=== PATIENT | female | born 1955 ===

== ENCOUNTER 2017-01-20 16:40 | Inpatient (IN) | payer BC ==
--- NOTE | 2017-01-20 17:06 | ED PDOC ---
HPI: Abdomen Time Seen by Provider: 01/20/17 16:50 Chief Complaint (Nursing): Abdominal Pain Chief Complaint (Provider): Diarrhea, vomiting, fever History Per: Patient History/Exam Limitations: no limitations Onset/Duration Of Symptoms: Days (5) Outside of [place] travel?: No Current Symptoms Are (Timing): Still Present Additional Complaint(s): The patient is a 61yo female, past medical history of hypertension, presents to eD for evaluation of non-bloody diarrhea, present for the past 5 days with associated nausea and non-bloody vomiting. Patient also reports a fever with Tmax of 100; she denies any associated abdominal pain or -symptoms. Patient denies any pervious abdominal surgeries. She offers no additional medical complaints. PCP: Dr. Bernardo Past Medical History Reviewed: Historical Data, Nursing Documentation, Vital Signs Vital Signs: Last Vital Signs Temp 97.4 F L 01/21/17 00:00 Pulse 76 01/21/17 00:00 Resp 20 01/21/17 00:00 BP 115/71 01/21/17 00:00 Pulse Ox 100 01/21/17 06:32 - Medical History PMH: HTN - Surgical History Surgical History: No Surg Hx - Family History Family History: States: No Known Family Hx - Social History Current smoker - smoking cessation education provided: No Alcohol: None Drugs: Denies - Home Medications Home Medications: Ambulatory Orders Medication Instructions Recorded Calcium No.1/D3/B6/FA/B12/Aloe 7,000 units PO QWK 01/20/17 [Vitamin D3-Aloe 1,000 Unit Tab] Lisinopril/Hydrochlorothiazide 20 - 25 mg PO DAILY 01/20/17 [Lisinopril-Hctz 20-25 mg Tab] [id number] Ethyl Esters 1 GM 01/20/17 [Lovaza] - Allergies Allergies/Adverse Reactions: Allergies Allergy/AdvReac Type Severity Reaction Status Date / Time No Known Allergies Allergy Verified 01/20/17 16:44 Review of Systems ROS Statement: Except As Marked, All Systems Reviewed And Found Negative Constitutional: Positive for: Fever (tmax 100) Gastrointestinal: Positive for: Nausea, Vomiting, Diarrhea. Negative for: Abdominal Pain Physical Exam - Reviewed Nursing Documentation Reviewed: Yes Vital Signs Reviewed: Yes - Physical Exam Appears: Positive for: Well, Non-toxic, No Acute Distress Head Exam: Positive for: ATRAUMATIC, NORMAL INSPECTION, NORMOCEPHALIC Skin: Positive for: Normal Color, Warm, DRY Eye Exam: Positive for: Normal appearance Neck: Positive for: Normal, Supple Cardiovascular/Chest: Positive for: Regular Rate, Rhythm Respiratory: Positive for: Normal Breath Sounds. Negative for: Respiratory Distress Gastrointestinal/Abdominal: Positive for: Normal Exam, Soft. Negative for: Tenderness, Mass, Guarding, Rebound Extremity: Positive for: Normal ROM. Negative for: Deformity, Swelling Neurologic/Psych: Positive for: Alert, Oriented. Negative for: Motor/Sensory Deficits - Laboratory Results Result Diagrams: 01/21/17 06:55 01/21/17 06:55 - ECG O2 Sat by Pulse Oximetry: 100 (RA) Pulse Ox Interpretation: Normal Medical Decision Making Medical Decision Making: Time: 1654 Impression: Fever, gastroenteritis Plan: --- CT AP w/ IV Contrast -- VBG -- EKG -- CMP -- Lipase -- CBC -- PTT -- PT -- Tylenol 3 650 mg PO -- IV NS 1L/Hr -- Zofran 4mg IV -- Blood cultrue -- Urine Culture -- Urinalysis -- Reassess Time: 1815 K-Dur 20 meq PO ordered Time: 1830 Repeat potassium level at 2.7 K-Dur 20meq PO ordered Time: 1900 Patient to be signed out to Dr. Cerrato pending CT AP results and disposition. Scribe Attestation: Documented by Kandace Tracy acting as a scribe for Tawana Trejo MD. Provider Attestation: All medical record entries made by the Scribe were at my direction and personally dictated by me. I have reviewed the chart and agree that the record accurately reflects my personal performance of the history, physical exam, medical decision making, and the department course for this patient. I have also personally directed, reviewed, and agree with the discharge instructions and disposition. Disposition - Clinical Impression Clinical Impression: Ureteral calculus, Pyelonephritis - Patient ED Disposition Is Patient to be Admitted: Transfer of Care - Disposition Disposition: Transfer of Care Disposition Time: 19:00 Condition: STABLE Patient Signed Over To: London Cerrato Handoff Comments: Pending CT AP
[2017-01-20] MEDS ORDERED: Sodium Chloride 0.9% 1,000 ML IV STA ×2 (17:34→18:45)
[2017-01-20 17:56] LABS: VENOUS BLOOD GAS BASE EXCESS 6.6 mmol/L (0.0-2.0); VENOUS BLOOD GAS PCO2 29 mmHg (40-60); VENOUS BLOOD PH 7.59 (7.32-7.43)
[2017-01-20 17:57] LABS: BASO % 0.3 % (0.0-2.0); HEMATOCRIT 42.5 % (34.0-47.0); LYMPH # 1.2 K/uL (1.0-4.3); MEAN CELL VOLUME 88.8 fl (81.0-99.0); MEAN CORPUSCULAR HEMOGLOBIN 30.7 pg (27.0-31.0); MEAN CORPUSCULAR HGB CONC 34.6 g/dL (33.0-37.0); MEAN PLATELET VOLUME 8.9 fl (7.2-11.7); MONO # 1.6 K/uL (0.0-0.8); MONO % 8.6 % (0.0-10.0); NEUT # 16.3 K/uL (1.8-7.0); NEUT % 85.1 % (50.0-75.0); PLATELET COUNT 221 K/uL (130-400); RED CELL DISTRIBUTION WIDTH 12.4 % (11.5-14.5); WHITE BLOOD COUNT 19.1 K/uL (4.8-10.8)
[2017-01-20 18:07] LABS: ALB/GLOB RATIO 1.2 (1.0-2.1); BILIRUBIN,TOTAL 2.3 mg/dl (0.2-1.3); CALCIUM 9.5 mg/dL (8.4-10.2); TOTAL PROTEIN 8.4 G/DL (6.3-8.2)
[2017-01-20 18:14] LABS: POTASSIUM 3.5 MMOL/L (3.6-5.0)
[2017-01-20] MEDS ORDERED: Potassium Chloride 20 mEq ER Tab PO STA ×2 (18:16→18:49)
[2017-01-20] MEDS ORDERED: Potassium Chloride 20 mEq ER Tab PO ONE ×2 (18:30→18:51)
--- NOTE | 2017-01-20 19:11 | ED PDOC ---
- Laboratory Results Result Diagrams: 01/20/17 17:49 01/20/17 18:30 - ECG O2 Sat by Pulse Oximetry: 100 (RA) Pulse Ox Interpretation: Normal Medical Decision Making Medical Decision Making: Receiving sign out: Patient signed out to me by Dr. Trejo at [address] AP results. Scribe Attestation: Documented by Kandace Tracy acting as a scribe for London Cerrato MD. Provider Attestation: All medical record entries made by the Scribe were at my direction and personally dictated by me. I have reviewed the chart and agree that the record accurately reflects my personal performance of the history, physical exam, medical decision making, and the department course for this patient. I have also personally directed, reviewed, and agree with the discharge instructions and disposition. Disposition Discussed With : Tressa Liu Counseled Patient/Family Regarding: Studies Performed, Diagnosis - Clinical Impression Clinical Impression: Ureteral calculus, Pyelonephritis - POA Present On Arrival: None - Disposition Disposition: Admitted as In-Patient Disposition Time: 21:00 Condition: FAIR Progress Note - Review of Symptoms Events since last encounter: Time: 2049 CT AP IMPRESSION: Mild right hydronephrosis and hydroureter with delayed nephrogram with an obstructing 6 mm calculus in the distal right ureter. Additional findings above. Thank you for allowing us to participate in the care of your patient. Time: 2099 -- Rocephin 2gm IV daily -- Flomax 0.8 mg PO -- Case discussed with hospitalist airport operations officer, Dr. Liu and is to be admitted to med /surg for Obstructive Ureteral Calculus, Pyelonephritis Time: [address] Bernardo, patient's PCP who is aware of plan.
[2017-01-20 19:18] LABS: LARGE PLATELETS PRESENT; NEUTROPHIL 82 % (42-75); TOTAL CELLS COUNTED 100
[2017-01-20] MEDS ORDERED: Iohexol 300 100 ML IJ ONE (20:09)
[2017-01-20] MEDS ORDERED: Sodium Chloride 0.9% 50 ML IV ONE (20:09)
[2017-01-20] MEDS ORDERED: cefTRIAXone 2 GM in Sodium Chloride 0.9% 100 ML IVPB STA (21:03)
[2017-01-20] MEDS ORDERED: cefTRIAXone (Rocephin) 1 gm Inj ONE (21:20)
--- NOTE | 2017-01-20 21:42 | CP.PCM.HP ---
History of Present Illness - History of Present Illness History of Present Illness: Chief complaint: Nausea, vomiting, fever, abdominal discomfort HPI: This is a 61-year-old female with medical history significant for hypertension and hyperlipidemia who comes in with complaints of 5-6 days of abdominal pain, bloating, n/v, anorexia, and initially constipation. Patient reports fevers and chills with a temperature up to 100 yesterday, as well as several episodes of diarrhea. Patient denies dysuria, denies blood in the urine. Patient denies prior history of nephrolithiasis or complicated UTI. ROS: 14 systems reviewed and negative other than HPI MHx: Hypertension, hyperlipidemia SHx: Colonoscopy in the past Allergies: NKDA Medications: As per med rec Family history: No family history of kidney stones, no other relevant family history Social history: Patient lives by herself, denies alcohol or tobacco use Emergency contact: Sonali Vargas, [phone] Present on Admission - Present on Admission Any Indicators Present on Admission: No Past Patient History - Past Social History Alcohol: None Drugs: Denies - CARDIAC Hx Hypertension: Yes - GASTROINTESTINAL Other/Comment: acid reflux - PSYCHIATRIC Hx Substance Use: No Meds Allergies/Adverse Reactions: Allergies Allergy/AdvReac Type Severity Reaction Status Date / Time No Known Allergies Allergy Verified 01/20/17 16:44 Physical Exam - Constitutional Appears: No Acute Distress - Head Exam Head Exam: ATRAUMATIC, NORMOCEPHALIC - Eye Exam Eye Exam: EOMI, PERRL - ENT Exam ENT Exam: Mucous Membranes Dry - Neck Exam Neck exam: Positive for: Full Rom - Respiratory Exam Respiratory Exam: Clear to Auscultation Bilateral, NORMAL BREATHING PATTERN - Cardiovascular Exam Cardiovascular Exam: REGULAR RHYTHM, +S1, +S2 - GI/Abdominal Exam GI & Abdominal Exam: Distended, Normal Bowel Sounds, Soft (No tenderness to palpation) - Extremities Exam Extremities exam: Positive for: full ROM, normal inspection - Neurological Exam Neurological exam: Alert, CN II-XII Intact, Oriented x3 - Psychiatric Exam Psychiatric exam: Normal Affect, Normal Mood - Skin Skin Exam: Dry, Warm Results - Vital Signs Recent Vital Signs: Last Vital Signs Temp 99.3 F 01/20/17 18:46 Pulse 83 01/20/17 18:46 Resp 20 01/20/17 18:46 BP 94/55 L 01/20/17 18:46 Pulse Ox 100 01/20/17 21:37 - Labs Result Diagrams: 01/20/17 17:49 01/20/17 18:30 - Imaging and Cardiology CT scan - abdomen Status: Image reviewed by me, Report reviewed by me (Mild right hydronephrosis and hydroureter, 6 mm partially obstructing stone) Assessment & Plan (1) Nephrolithiasis Assessment and Plan: A/P: This is a 61-year-old female with pyelonephritis in the setting of right nephrolithiasis, with sepsis. 1. Sepsis/pyelonephritis/nephrolithiasis -Admitted to [facility] -Continue ceftriaxone IV -Continue IV fluids -Zofran IV for nausea and vomiting, Tylenol for pain and fevers -Flomax 0.4 milligrams daily -Consult: Dr. Washington 2. Hypertension -- continue home medication 3. DVT prophylaxis -- SCDs only Status: Acute (2) Pyelonephritis Status: Acute (3) Sepsis Status: Acute (4) DVT prophylaxis Status: Acute (5) HTN (hypertension) Status: Acute
[2017-01-20 21:52] LABS: RBC URINE 5 /hpf (0-3); URINE BACTERIA RARE (<OCC); URINE BILIRUBIN NEGATIVE (NEGATIVE); URINE BLOOD SMALL (NEGATIVE); URINE COLOR YELLOW (YELLOW); URINE GLUCOSE (UA) NEG (Normal); URINE KETONE NEGATIVE (NEGATIVE); URINE LEUKOCYTE ESTERASE MOD Leu/uL (Negative); URINE PROTEIN 30 mg/dL (NEGATIVE); URINE UROBILINOGEN 0.2-1.0 mg/dL (0.2-1.0); WBC URINE 26 /hpf (0-5)
[2017-01-20 22:24] LABS: VENOUS BLOOD GAS BASE EXCESS 2.3 mmol/L (0.0-2.0); VENOUS BLOOD GAS PCO2 39 mmHg (40-60); VENOUS BLOOD PH 7.44 (7.32-7.43)
[2017-01-21] MEDS: KCL 40MEQ/NS 1L 1,000 ML IV SCH ×3 (00:45→22:03)
[2017-01-21 07:31] LABS: HEMATOCRIT 37.4 % (34.0-47.0); MEAN CELL VOLUME 89.3 fl (81.0-99.0); MEAN CORPUSCULAR HEMOGLOBIN 30.5 pg (27.0-31.0); MEAN CORPUSCULAR HGB CONC 34.2 g/dL (33.0-37.0); RED CELL DISTRIBUTION WIDTH 12.7 % (11.5-14.5); WHITE BLOOD COUNT 12.5 K/uL (4.8-10.8)
[2017-01-21 07:38] LABS: BLOOD UREA NITROGEN 18 mg/dl (7-17); CALCIUM 8.5 mg/dL (8.4-10.2); CARBON DIOXIDE 20 mmol/L (22-30); CHLORIDE 104 mmol/L (98-107); GFR AFRICAN-AMERICAN > 60; GLUCOSE,RANDOM 140 mg/dL (65-105); POTASSIUM 3.4 MMOL/L (3.6-5.0); SODIUM 139 mmol/l (132-148)
--- NOTE | 2017-01-21 07:39 | CP.PCM.PN ---
Subjective - Date & Time of Evaluation Date of Evaluation: 01/21/17 Time of Evaluation: 12:00 - Subjective Subjective: Patient seen and examined bedside. Feeling a little better. states that was having chills and fevers , abdominal distention , unable to pass gas before presentation . At present with episodes of multiple watery diarrhea x3 and abdominal distention feels better. Febrile Tmax 101.7 WBc trending down from 19 K -- 12 .5 Bp 97/63 Objective - Vital Signs/Intake and Output Vital Signs (last 24 hours): Temp Pulse Resp BP Pulse Ox 97.4 F L 76 20 115/71 100 01/21/17 00:00 01/21/17 00:00 01/21/17 00:00 01/21/17 00:00 01/21/17 06:32 - Medications Medications: Current Medications Acetaminophen (Tylenol 325mg Tab) 650 mg PO Q6 PRN PRN Reason: Pain, Mild (1-3) Acetaminophen (Tylenol 325mg Tab) 650 mg PO Q6 PRN PRN Reason: Fever >100.4 F Oral Electrolytes (Kcl 40meq/ 0.9% 1l) 1,000 mls @ 100 mls/hr IV .Q10H KRISH Last Admin: 01/21/17 00:45 Dose: 100 mls/hr Ceftriaxone Sodium 1 gm/ (Sodium Chloride) 100 mls @ 100 mls/hr IVPB DAILY KRISH Ondansetron HCl (Zofran Inj) 4 mg IVP Q6 PRN PRN Reason: Nausea/Vomiting Tamsulosin HCl (Flomax) 0.4 mg PO DAILY KRISH - Labs Labs: 01/21/17 06:55 PT 13.2 Seconds (9.8-13.1) H 01/20/17 17:49 INR 1.3 (0.9-1.2) H 01/20/17 17:49 APTT 30.0 Seconds (25.6-37.1) 01/20/17 17:49 - Constitutional Appears: Non-toxic, No Acute Distress - Head Exam Head Exam: ATRAUMATIC, NORMAL INSPECTION, NORMOCEPHALIC - Eye Exam Eye Exam: EOMI, Normal appearance, PERRL Pupil Exam: NORMAL ACCOMODATION - ENT Exam ENT Exam: Mucous Membranes Moist, Normal Exam - Neck Exam Neck Exam: Full ROM, Normal Inspection - Respiratory Exam Respiratory Exam: Clear to Ausculation Bilateral, NORMAL BREATHING PATTERN. absent: Rales, Rhonchi, Wheezes, Respiratory Distress - Cardiovascular Exam Cardiovascular Exam: REGULAR RHYTHM, RRR, +S1, +S2. absent: JVD - GI/Abdominal Exam GI & Abdominal Exam: Soft, Normal Bowel Sounds. absent: Distended, Guarding, Tenderness, Rebound - Rectal Exam Rectal Exam: Deferred - Extremities Exam Extremities Exam: Full ROM, Normal Capillary Refill, Normal Inspection. absent : Calf Tenderness, Pedal Edema, Tenderness - Back Exam Back Exam: NORMAL INSPECTION. absent: CVA tenderness (L), CVA tenderness (R) - Neurological Exam Neurological Exam: Alert, Awake, CN II-XII Intact, Oriented x3 - Psychiatric Exam Psychiatric exam: Normal Affect - Skin Skin Exam: Dry, Intact, Warm Assessment and Plan - Assessment and Plan (Free Text) Assessment: 61-year-old female with PMH hypertension and hyperlipidemia came in complaining of 5-6 days of abdominal pain, bloating, n/v, anorexia, and initially constipation. Patient reports fevers and chills with a temperature up to 100 , as well as several episodes of diarrhea. Patient denies dysuria, denies blood in the urine. Initial work up showed WBC 19 k Tmax 101.[address] abdomen showed :1. Moderate right obstructive uropathy resulting from a 5 mm stone in the distal ureter at the level of S1. 2. At least 3 low-density lesions in the right kidney are not completely characterized on this examination and demonstrate density is higher than simple fluid an could represent complicated/hemorrhagic cysts. A dedicated retroperitoneal ultrasound is recommended for further characterization. 3. Extensive colonic diverticulosis without CT evidence for acute diverticulitis. 4. Bulky lobular uterus for postmenopausal status, a dedicated pelvic ultrasound is recommended to evaluate for fibroid uterus. 5. Hepatic steatosis. Patient admitted to med/surg with diagnosis of sepsis , started on IVF and IV rocephin 1. Sepsis unclear etiology based on CT findings suspicious for pyelonephritis follow up urine cx , blood cx . Send stool cx and work up since patient has episodes of diarrhea Continue rocephin IV, pain managemet, IVF Zofran IV for nausea and vomiting, Tylenol for pain and fevers 2. Nephrolothiasis right obstructive uropathy urology cosnultd Started IVF, Flomax and pain management 3. Hypertension hold home meds since BP is on the lower side 4. Globular uterus will need dedicated OB US and follow up with OB 5. Coagulopathy / Elevated LFT-s / elevated bilirubin unclear etiology Ct abdomen showed steatosis repeat CMP in AM Hepatitis panel Will order Abdominal US 6. Hypokalemia Most likely secondary to GI losses Replaced with KCl runs 6. DVT prophylaxis SCDs lovenox
--- NOTE | 2017-01-21 10:27 | CT ---
PROCEDURE: CT Abdomen and Pelvis with contrast HISTORY: Vomiting/diarrhea, fever COMPARISON: None. TECHNIQUE: CT scan of the abdomen and pelvis was performed after intravenous administration of contrast. Oral contrast was not administered. Coronal and sagittal reformatted images were obtained. Contrast dose: 95 cc Omnipaque Radiation dose: Total exam DLP = 873.37 mGy-cm. This CT exam was performed using one or more of the following dose reduction techniques: Automated exposure control, adjustment of the mA and/or kV according to patient size, and/or use of iterative reconstruction technique. FINDINGS: LOWER THORAX: There is a 5 mm nodule in the right middle lobe (series 2, image 4). There is bibasilar subsegmental atelectasis. LIVER: There is diffuse fatty infiltration in the liver. No focal mass or intrahepatic biliary ductal dilatation. GALLBLADDER AND BILE DUCTS: There are no calcified gallstones. PANCREAS: The pancreas is normal in size and there is homogeneous enhancement without ductal dilatation or mass. SPLEEN: The spleen is normal in size without focal mass. ADRENALS: The right adrenal gland is normal in size without discrete nodule. There is a 1.4 cm low-attenuation nodule in the left adrenal gland. KIDNEYS AND URETERS: There is a 5 mm obstructing stone in the right distal ureter at the level of S1 with resultant mild diffuse dilatation of the proximal ureteral, mild hydronephrosis and significant perinephric inflammatory changes. There is no nephrolithiasis. There are at least 3 low-attenuation lesions in the right kidney measuring up to 1.3 cm with densities higher than simple fluid. The left kidney is normal in size with homogeneous enhancement. The left ureter is not dilated VASCULATURE: There atherosclerotic aortoiliac calcifications. No aortic aneurysm. BOWEL: The small bowel loops are normal in caliber. There is extensive colonic diverticulosis without CT evidence for acute diverticulitis. APPENDIX: Normal appendix. PERITONEUM: No free fluid. No free air. LYMPH NODES: No enlarged lymph nodes. BLADDER: The urinary bladder is well distended without intraluminal stone. REPRODUCTIVE: The uterus is bulky and lobular. No adnexal masses. BONES: No acute fracture. Within normal limits for the patient's age. OTHER FINDINGS: There is a small sliding hiatal hernia. IMPRESSION: 1. Moderate right obstructive uropathy resulting from a 5 mm stone in the distal ureter at the level of S1. 2. At least 3 low-density lesions in the right kidney are not completely characterized on this examination and demonstrate density is higher than simple fluid an could represent complicated/hemorrhagic cysts. A dedicated retroperitoneal ultrasound is recommended for further characterization. 3. Extensive colonic diverticulosis without CT evidence for acute diverticulitis. 4. Bulky lobular uterus for postmenopausal status, a dedicated pelvic ultrasound is recommended to evaluate for fibroid uterus. 5. Hepatic steatosis. A preliminary report was provided by [facility] [employer] [facility]. There are important additional findings in the right kidney and uterus as described above. Follow-up is advised.
--- NOTE | 2017-01-21 11:26 | CARD ---
APPROVED REPORT EKG Measurement Heart [id number] OR [id number] <Conclusion> Normal sinus rhythm Minimal voltage criteria for LVH, may be normal variant Nonspecific T wave abnormality Abnormal ECG
[2017-01-21] MEDS: Lactobacillus Acidophilus 500 MU Cap PO SCH (16:55)
[2017-01-22] MEDS: Potassium Chl 20 mEq in NS 1,000 ML IV SCH ×3 (00:18→21:27)
[2017-01-22 08:03] LABS: HEMATOCRIT 35.5 % (34.0-47.0); MEAN CELL VOLUME 89.4 fl (81.0-99.0); MEAN CORPUSCULAR HEMOGLOBIN 30.7 pg (27.0-31.0); MEAN CORPUSCULAR HGB CONC 34.3 g/dL (33.0-37.0); WHITE BLOOD COUNT 8.3 K/uL (4.8-10.8)
[2017-01-22 08:13] LABS: ALB/GLOB RATIO 1.1 (1.0-2.1); ALKALINE PHOSPHATASE 50 U/L (38-126); ALT/SGPT 66 U/L (9-52); AST/SGOT 59 U/L (14-36); BILIRUBIN,TOTAL 0.9 mg/dl (0.2-1.3); BLOOD UREA NITROGEN 15 mg/dl (7-17); CALCIUM 8.7 mg/dL (8.4-10.2); CARBON DIOXIDE 22 mmol/L (22-30); CHLORIDE 110 mmol/L (98-107); GFR AFRICAN-AMERICAN > 60; GLUCOSE,RANDOM 89 mg/dL (65-105); POTASSIUM 3.9 MMOL/L (3.6-5.0); SODIUM 141 mmol/l (132-148); TOTAL PROTEIN 6.1 G/DL (6.3-8.2)
[2017-01-22] MEDS: Enoxaparin 40 mg Syringe SC SCH (08:37)
[2017-01-22] MEDS: Lactobacillus Acidophilus 500 MU Cap PO SCH ×2 (09:24→17:16)
--- NOTE | 2017-01-22 10:10 | CP.PCM.CON ---
History of Present Illness - History of Present Illness History of Present Illness: UROLOGY pt 61 [address] finding of right 5mm lower ureteral calc causing mild/moderate hydro on right side. She has no prior hx of stones and she denies right renal colic pain. She was admitted for abdominal pain with alot of diarrhea. On physical eval she currently has no flank pain. She is straining her urine with no stone yet. When her diarrhea resolves i suggest to do a KUB and Renal Ultrasound to update status of stone Past Patient History - Past Medical History & Family History Past Medical History?: Yes - Past Social History Alcohol: None Drugs: Denies - CARDIAC Hx Hypertension: Yes - PULMONARY Hx Respiratory Disorders: No - NEUROLOGICAL Hx Neurological Disorder: No - HEENT Hx HEENT Problems: No - RENAL Hx Chronic Kidney Disease: No - ENDOCRINE/METABOLIC Hx Endocrine Disorders: No - HEMATOLOGICAL/ONCOLOGICAL Hx Blood Disorders: No - INTEGUMENTARY Hx Dermatological Problems: No - MUSCULOSKELETAL/RHEUMATOLOGICAL Hx Musculoskeletal Disorders: No Hx Falls: No - GASTROINTESTINAL Hx Gastrointestinal Disorders: No Other/Comment: acid reflux - GENITOURINARY/GYNECOLOGICAL Hx Genitourinary Disorders: No - PSYCHIATRIC Hx Psychophysiologic Disorder: No Hx Substance Use: No - SURGICAL HISTORY Hx Surgeries: No - ANESTHESIA Hx Anesthesia: No Hx Anesthesia Reactions: No Hx Malignant Hyperthermia: No Has any member of the family had a problem w/ anesthesia?: No Meds Allergies/Adverse Reactions: Allergies Allergy/AdvReac Type Severity Reaction Status Date / Time No Known Allergies Allergy Verified 01/20/17 16:44 - Medications Medications: Current Medications Acetaminophen (Tylenol 325mg Tab) 650 mg PO Q6 PRN PRN Reason: Pain, Mild (1-3) Last Admin: 01/21/17 15:50 Dose: 650 mg Acetaminophen (Tylenol 325mg Tab) 650 mg PO Q6 PRN PRN Reason: Fever >100.4 F Last Admin: 01/22/17 00:24 Dose: 650 mg Enoxaparin Sodium (Lovenox) 40 mg SC DAILY KRISH PRN Reason: Protocol Last Admin: 01/22/17 08:37 Dose: 40 mg Ceftriaxone Sodium 1 gm/ (Sodium Chloride) 100 mls @ 100 mls/hr IVPB DAILY KRISH Last Admin: 01/22/17 08:38 Dose: 100 mls/hr Potassium Chloride/Sodium Chloride (Potassium Chl 20 Meq In Ns) 1,000 mls @ 99.01 mls/hr IV .Q10H6M [facility] Last Admin: 01/22/17 06:55 Dose: 99.01 mls/hr Lactobacillus Acidophilus (Bacid Acidophilus) 1 cap PO BID [facility] Last Admin: 01/22/17 09:24 Dose: 1 cap Ondansetron HCl (Zofran Inj) 4 mg IVP Q6 PRN PRN Reason: Nausea/Vomiting Tamsulosin HCl (Flomax) 0.4 mg PO DAILY [facility] Last Admin: 01/22/17 08:37 Dose: 0.4 mg Results - Vital Signs Recent Vital Signs: Last Vital Signs Temp 98.4 F 01/22/17 08:38 Pulse 82 01/22/17 08:38 Resp 20 01/22/17 08:38 BP 134/81 01/22/17 08:38 Pulse Ox 97 01/22/17 08:38 - Labs Result Diagrams: 01/22/17 06:45 01/22/17 06:45 Labs: Laboratory Results - last 24 hr 01/21/17 01/22/17 01/22/17 20:30 04:46 06:45 WBC 8.3 RBC 3.97 Hgb 12.2 Hct 35.5 MCV 89.4 MCH 30.7 MCHC 34.3 RDW 13.0 Plt Count 137 Sodium Potassium Chloride Carbon Dioxide Anion Gap BUN Creatinine Est GFR ( Amer) Est GFR (Non-Af Amer) Random Glucose Calcium Total Bilirubin AST ALT Alkaline Phosphatase Total Protein Albumin Globulin Albumin/Globulin Ratio Urine Opiates Screen Negative Urine Methadone Screen Negative Ur Barbiturates Screen Negative Ur Phencyclidine Scrn Negative Ur Amphetamines Screen Negative U Benzodiazepines Scrn Negative U Oth Cocaine Metabols Negative U Cannabinoids Screen Negative Alcohol, Quantitative < 10 01/22/17 06:45 WBC RBC Hgb Hct MCV MCH MCHC RDW Plt Count Sodium 141 Potassium 3.9 Chloride 110 H Carbon Dioxide 22 Anion Gap 13 BUN 15 Creatinine 0.9 Est GFR ( Amer) > 60 Est GFR (Non-Af Amer) > 60 Random Glucose 89 Calcium 8.7 Total Bilirubin 0.9 AST 59 H D ALT 66 H D Alkaline Phosphatase 50 Total Protein 6.1 L Albumin 3.2 L D Globulin 3.0 Albumin/Globulin Ratio 1.1 Urine Opiates Screen Urine Methadone Screen Ur Barbiturates Screen Ur Phencyclidine Scrn Ur Amphetamines Screen U Benzodiazepines Scrn U Oth Cocaine Metabols U Cannabinoids Screen Alcohol, Quantitative
--- NOTE | 2017-01-22 10:55 | CP.PCM.PN ---
Subjective - Date & Time of Evaluation Date of Evaluation: 01/22/17 Time of Evaluation: 12:30 - Subjective Subjective: Patient seen and examined bedside. Feeling better. still with watery diarrhea this AM. Denies any abdominal pain. Febrile Tmax 102.7 ,hemodyanmically stable. No acute issues overnight URINE CX POSITIVE FOR pROTEUS Objective - Vital Signs/Intake and Output Vital Signs (last 24 hours): Temp Pulse Resp BP Pulse Ox 98.4 F 82 20 134/81 97 01/22/17 08:38 01/22/17 08:38 01/22/17 08:38 01/22/17 08:38 01/22/17 08:38 Intake and Output: 01/22/17 01/22/17 06:59 18:59 Intake Total 1400 Balance 1400 - Medications Medications: Current Medications Acetaminophen (Tylenol 325mg Tab) 650 mg PO Q6 PRN PRN Reason: Pain, Mild (1-3) Last Admin: 01/21/17 15:50 Dose: 650 mg Acetaminophen (Tylenol 325mg Tab) 650 mg PO Q6 PRN PRN Reason: Fever >100.4 F Last Admin: 01/22/17 00:24 Dose: 650 mg Enoxaparin Sodium (Lovenox) 40 mg SC DAILY [facility] PRN Reason: Protocol Last Admin: 01/22/17 08:37 Dose: 40 mg Ceftriaxone Sodium 1 gm/ (Sodium Chloride) 100 mls @ 100 mls/hr IVPB DAILY [facility] Last Admin: 01/22/17 08:38 Dose: 100 mls/hr Potassium Chloride/Sodium Chloride (Potassium Chl 20 Meq In Ns) 1,000 mls @ 99.01 mls/hr IV .Q10H6M [facility] Last Admin: 01/22/17 06:55 Dose: 99.01 mls/hr Lactobacillus Acidophilus (Bacid Acidophilus) 1 cap PO BID [facility] Last Admin: 01/22/17 09:24 Dose: 1 cap Ondansetron HCl (Zofran Inj) 4 mg IVP Q6 PRN PRN Reason: Nausea/Vomiting Tamsulosin HCl (Flomax) 0.4 mg PO DAILY [facility] Last Admin: 01/22/17 08:37 Dose: 0.4 mg - Labs Labs: 01/22/17 06:45 01/22/17 06:45 PT 13.2 Seconds (9.8-13.1) H 01/20/17 17:49 INR 1.3 (0.9-1.2) H 01/20/17 17:49 APTT 30.0 Seconds (25.6-37.1) 01/20/17 17:49 - Constitutional Appears: Non-toxic, No Acute Distress - Head Exam Head Exam: ATRAUMATIC, NORMAL INSPECTION, NORMOCEPHALIC - Eye Exam Eye Exam: EOMI, Normal appearance, PERRL Pupil Exam: NORMAL ACCOMODATION - ENT Exam ENT Exam: Mucous Membranes Moist, Normal Exam - Neck Exam Neck Exam: Full ROM, Normal Inspection - Respiratory Exam Respiratory Exam: Clear to Ausculation Bilateral, NORMAL BREATHING PATTERN. absent: Rales, Rhonchi, Wheezes - Cardiovascular Exam Cardiovascular Exam: REGULAR RHYTHM, RRR, +S1, +S2. absent: JVD - GI/Abdominal Exam GI & Abdominal Exam: Soft, Normal Bowel Sounds. absent: Distended, Guarding, Tenderness, Rebound - Rectal Exam Rectal Exam: Deferred - Extremities Exam Extremities Exam: Full ROM, Normal Capillary Refill, Normal Inspection. absent : Calf Tenderness, Pedal Edema - Back Exam Back Exam: NORMAL INSPECTION - Neurological Exam Neurological Exam: Alert, Awake, CN II-XII Intact, Oriented x3 - Psychiatric Exam Psychiatric exam: Normal Affect, Normal Mood - Skin Skin Exam: Dry, Intact, Normal Color, Warm Assessment and Plan - Assessment and Plan (Free Text) Assessment: 61-year-old female with PMH hypertension and hyperlipidemia came in complaining of 5-6 days of abdominal pain, bloating, n/v, anorexia, and initially constipation. Patient reports fevers and chills with a temperature up to 100 , as well as several episodes of diarrhea. Patient denies dysuria, denies blood in the urine. Initial work up showed WBC 19 k Tmax 101.[address] abdomen showed :1. Moderate right obstructive uropathy resulting from a 5 mm stone in the distal ureter at the level of S1. 2. At least 3 low-density lesions in the right kidney are not completely characterized on this examination and demonstrate density is higher than simple fluid an could represent complicated/hemorrhagic cysts. A dedicated retroperitoneal ultrasound is recommended for further characterization. 3. Extensive colonic diverticulosis without CT evidence for acute diverticulitis. 4. Bulky lobular uterus for postmenopausal status, a dedicated pelvic ultrasound is recommended to evaluate for fibroid uterus. 5. Hepatic steatosis. Patient admitted to med/surg with diagnosis of sepsis , started on IVF and IV rocephin 1. Sepsis MOST LIKELY SECONDARY TO UTI, pyelonephritis AND GASTROENTERITIS CT findings as above Urine culture positive for Proteus mirabilis Follow up blood cultures patient still febrileTmax 102.7 , WBC trended down from 19 K-- 8 K Still with watery diarrhea C.difff and hepatitis profile negative Continue rocephin IV, pain management, IVF Zofran IV for nausea and vomiting, Tylenol for pain and fevers 2. Nephrolothiasis right obstructive uropathy urology consulted contine IVF, Flomax and pain management Repeat US once diarrhea improves 3. Hypertension hold home meds since BP is on the lower side 4. Globular uterus follow up OB US patient will need follow up with her OB 5. Coagulopathy / Elevated LFT-s / elevated bilirubin unclear etiology Ct abdomen showed steatosis Hepatitis panel-- negative f/u Abdominal US continue to monitor 6. Hypokalemia Most likely secondary to GI losses Replaced with KCl runs 7. Diarrhea/ nausea-- suspected viral gastroenteritis continue IVF replace K Stool c.diff - negative follow up stool cultures , ova and parasites 8. DVT prophylaxis SCDs lovenox
--- NOTE | 2017-01-22 17:07 | US ---
HISTORY: globular uterus rule out fibroids COMPARISON: None available. TECHNIQUE: Transabdominal only FINDINGS: UTERUS: Measures 9.4 x 7.3 x 7.0 cm. There is a lower uterine segment fibroid identified measuring 3.1 x 4.3 by 4.5 cm. No other discrete mass is identified. However, additional fibroids are suspected based upon echotexture and poor through transmission of sound. ENDOMETRIUM: The endometrium could not be visualized most likely secondary to the presence of obscuring fibroids. CERVIX: No cervical abnormality identified. RIGHT OVARY: Not visualized LEFT OVARY: Not visualize FREE FLUID: No significant free fluid noted. OTHER FINDINGS: None. IMPRESSION: Enlarged uterus likely containing multiple fibroids though only 1 discrete fibroid is identified in the lower uterine segment, 4.5 cm in greatest dimension. Endometrium could not be evaluated. Ovaries not visualized.
[2017-01-23 06:23] LABS: MEAN CELL VOLUME 89.8 fl (81.0-99.0); MEAN CORPUSCULAR HEMOGLOBIN 30.2 pg (27.0-31.0); MEAN CORPUSCULAR HGB CONC 33.6 g/dL (33.0-37.0); RED CELL DISTRIBUTION WIDTH 12.9 % (11.5-14.5)
[2017-01-23 06:31] LABS: ALKALINE PHOSPHATASE 59 U/L (38-126); ALT/SGPT 85 U/L (9-52); AST/SGOT 79 U/L (14-36); BLOOD UREA NITROGEN 14 mg/dl (7-17); CALCIUM 8.6 mg/dL (8.4-10.2); CARBON DIOXIDE 18 mmol/L (22-30); CHLORIDE 111 mmol/L (98-107); GFR AFRICAN-AMERICAN > 60; GLUCOSE,RANDOM 84 mg/dL (65-105); POTASSIUM 3.7 MMOL/L (3.6-5.0); SODIUM 140 mmol/l (132-148); TOTAL PROTEIN 6.2 G/DL (6.3-8.2)
[2017-01-23 07:28] VITALS: RESP 18
[2017-01-23] MEDS: Potassium Chl 20 mEq in NS 1,000 ML IV SCH ×2 (08:13→08:38)
[2017-01-23] MEDS: Lactobacillus Acidophilus 500 MU Cap PO SCH ×2 (08:38→17:32)
[2017-01-23] MEDS: Enoxaparin 40 mg Syringe SC SCH (08:38)
--- NOTE | 2017-01-23 10:31 | CP.PCM.DIS ---
Provider - Provider Date of Admission: 01/20/17 21:03 Attending physician: Tressa Liu MD Time Spent in preparation of Discharge (in minutes): 30 Diagnosis - Discharge Diagnosis (1) Nephrolithiasis Status: Acute (2) Pyelonephritis Status: Acute Hospital Course - Lab Results Lab Results: Micro Results 01/21/17 14:13 Bowel Ova and Parasite Concentrate Exam - Final Most Recent Lab Values WBC 9.0 K/uL (4.8-10.8) 01/23/17 05:25 RBC 3.68 Mil/uL (3.80-5.20) L 01/23/17 05:25 Hgb 11.1 g/dL (12.0-16.0) L 01/23/17 05:25 Hct 33.0 % (34.0-47.0) L 01/23/17 05:25 MCV 89.8 fl (81.0-99.0) 01/23/17 05:25 MCH 30.2 pg (27.0-31.0) 01/23/17 05:25 MCHC 33.6 g/dL (33.0-37.0) 01/23/17 05:25 RDW 12.9 % (11.5-14.5) 01/23/17 05:25 Plt Count 144 K/uL (130-400) 01/23/17 05:25 MPV 8.9 fl (7.2-11.7) 01/20/17 17:49 Neut % (Auto) 85.1 % (50.0-75.0) H 01/20/17 17:49 Lymph % (Auto) 6.0 % (20.0-40.0) L 01/20/17 17:49 [place] % (Auto) 8.6 % (0.0-10.0) 01/20/17 17:49 Eos % (Auto) 0.0 % (0.0-4.0) 01/20/17 17:49 Baso % (Auto) 0.3 % (0.0-2.0) 01/20/17 17:49 Neut # 16.3 K/uL (1.8-7.0) H 01/20/17 17:49 Lymph # 1.2 K/uL (1.0-4.3) 08/21/17 17:49 [place] # 1.6 K/uL (0.0-0.8) H 01/20/17 17:49 Eos # 0.0 K/uL (0.0-0.7) 01/20/17 17:49 Baso # 0.0 K/uL (0.0-0.2) 01/20/17 17:49 Neutrophils % (Manual) 82 % (42-75) H 01/20/17 17:49 Band Neutrophils % 2 % (0-2) 01/20/17 17:49 Lymphocytes % (Manual) 6 % (20-50) L 01/20/17 17:49 Monocytes % (Manual) 10 % (0-10) 01/20/17 17:49 Platelet Estimate Normal (NORMAL) 01/20/17 17:49 Large Platelets Present 01/20/17 17:49 RBC Morphology Normal (NORMAL) 01/20/17 17:49 PT 13.2 Seconds (9.8-13.1) H 01/20/17 17:49 INR 1.3 (0.9-1.2) H 01/20/17 17:49 APTT 30.0 Seconds (25.6-37.1) 01/20/17 17:49 pO2 47 mm/Hg (30-55) 01/20/17 21:00 VBG pH 7.44 (7.32-7.43) H 01/20/17 21:00 VBG pCO2 39 mmHg (40-60) L 01/20/17 21:00 VBG HCO3 26.4 mmol/L 01/20/17 21:00 VBG Total CO2 27.7 mmol/L (22-28) 01/20/17 21:00 VBG O2 Sat (Calc) 89.6 % (40-65) H 01/20/17 21:00 VBG Base Excess 2.3 mmol/L (0.0-2.0) H 01/20/17 21:00 VBG Potassium 3.1 mmol/L (3.6-5.2) L 01/20/17 21:00 Sodium 135.0 mmol/L (132-148) 01/20/17 21:00 Chloride 102.0 mmol/L (98-107) 01/20/17 21:00 Glucose 141 mg/dL (65-105) H 01/20/17 21:00 Lactate 1.4 mmol/L (0.7-2.1) 01/20/17 21:00 FiO2 21.0 % 01/20/17 21:00 Crit Value Called To Gilson burris md 01/20/17 17:50 Crit Value Called By Marcio 01/20/17 17:50 Crit Value Read Back Y 01/20/17 17:50 Blood Gas Notified Time 1755 01/20/17 17:50 Sodium 140 mmol/l (132-148) 01/23/17 05:25 Potassium 3.7 MMOL/L (3.6-5.0) 01/23/17 05:25 Chloride 111 mmol/L (98-107) H 01/23/17 05:25 Carbon Dioxide 18 mmol/L (22-30) L 01/23/17 05:25 Anion Gap 15 (10-20) 01/23/17 05:25 BUN 14 mg/dl (7-17) 01/23/17 05:25 Creatinine 0.9 mg/dL (0.7-1.2) 01/23/17 05:25 Est GFR ( Amer) > 60 01/23/17 05:25 Est GFR (Non-Af Amer) > 60 01/23/17 05:25 Random Glucose 84 mg/dL (65-105) 01/23/17 05:25 Calcium 8.6 mg/dL (8.4-10.2) 01/23/17 05:25 Total Bilirubin 1.0 mg/dl (0.2-1.3) 01/23/17 05:25 AST 79 U/L (14-36) H D 01/23/17 05:25 ALT 85 U/L (9-52) H D 01/23/17 05:25 Alkaline Phosphatase 59 U/L (38-126) 01/23/17 05:25 Total Protein 6.2 G/DL (6.3-8.2) L 01/23/17 05:25 Albumin 3.1 g/dL (3.5-5.0) L 01/23/17 05:25 Globulin 3.1 gm/dL (2.2-3.9) 01/23/17 05:25 Albumin/Globulin Ratio 1.0 (1.0-2.1) 01/23/17 05:25 Lipase 75 U/L (23-300) 01/20/17 17:49 Venous Blood Potassium 3.1 mmol/L (3.6-5.2) L 01/20/17 21:00 Urine Color Yellow (YELLOW) 01/20/17 21:32 Urine Clarity Slighty-cloudy (Clear) 01/20/17 21:32 Urine pH 6.0 (5.0-8.0) 01/20/17 21:32 Ur Specific [place] 1.015 (1.003-1.030) 01/20/17 21:32 Urine Protein 30 mg/dL (NEGATIVE) 01/20/17 21:32 Urine Glucose (UA) Neg mg/dL (Normal) 01/20/17 21:32 Urine Ketones Negative mg/dL (NEGATIVE) 01/20/17 21:32 Urine Blood Small (NEGATIVE) 01/20/17 21:32 Urine Nitrate Negative (NEGATIVE) 01/20/17 21:32 Urine Bilirubin Negative (NEGATIVE) 01/20/17 21:32 Urine Urobilinogen 0.2-1.0 mg/dL (0.2-1.0) 01/20/17 21:32 Ur Leukocyte Esterase Mod Cristin/uL (Negative) 01/20/17 21:32 Urine RBC (Auto) 5 /hpf (0-3) H 01/20/17 21:32 Urine Microscopic WBC 26 /hpf (0-5) H 01/20/17 21:32 Ur Squamous Epith Cells 2 /hpf (0-5) 01/20/17 21:32 Urine Bacteria Rare (<OCC) 01/20/17 21:32 Stool Leukocytes, Qual Negative (NEGATIVE) 01/21/17 14:13 Urine Opiates Screen Negative (NEGATIVE) 01/22/17 04:46 Urine Methadone Screen Negative (NEGATIVE) 01/22/17 04:46 Ur Barbiturates Screen Negative (NEGATIVE) 01/22/17 04:46 Ur Phencyclidine Scrn Negative (NEGATIVE) 01/22/17 04:46 Ur Amphetamines Screen Negative (NEGATIVE) 01/22/17 04:46 U Benzodiazepines Scrn Negative (NEGATIVE) 01/22/17 04:46 U Oth Cocaine Metabols Negative (NEGATIVE) 01/22/17 04:46 U Cannabinoids Screen Negative (NEGATIVE) 01/22/17 04:46 Alcohol, Quantitative < 10 mg/dl (0-10) 01/21/17 20:30 C. difficile Ag & Toxin Negative (NEGATIVE) 01/22/17 10:00 Hepatitis A IgM Ab Negative (NEGATIVE) 01/21/17 20:30 Hep Bs Antigen Negative (NEGATIVE) 01/21/17 20:30 Hep B Core IgM Ab Negative (NEGATIVE) 01/21/17 20:30 Hepatitis C Antibody Negative (NEGATIVE) 01/21/17 20:30 - Hospital Course Hospital Course: 61-year-old female with PMH hypertension and hyperlipidemia came in complaining of 5-6 days of abdominal pain, bloating, n/v, anorexia, and initially constipation. Patient reports fevers and chills with a temperature up to 100 , as well as several episodes of diarrhea. Patient denies dysuria, denies blood in the urine. Initial work up showed WBC 19 k Tmax 101.[address] abdomen showed :1. Moderate right obstructive uropathy resulting from a 5 mm stone in the distal ureter at the level of S1. 2. At least 3 low-density lesions in the right kidney are not completely characterized on this examination and demonstrate density is higher than simple fluid an could represent complicated/hemorrhagic cysts. A dedicated retroperitoneal ultrasound is recommended for further characterization. 3. Extensive colonic diverticulosis without CT evidence for acute diverticulitis. 4. Bulky lobular uterus for postmenopausal status, a dedicated pelvic ultrasound is recommended to evaluate for fibroid uterus. 5. Hepatic steatosis. Patient admitted to med/surg with diagnosis of sepsis , started on IVF and IV rocephin PATIENT STABLE TO BE DISCHARGED HOME WITH CIPRO 10 DAYS, + proteus, najera sensitive. Discussed with Urology, OK to be d/c now that diarrhea resolved. Repeat KUB and Renal US and can be discharged home. 1. Sepsis MOST LIKELY SECONDARY TO UTI, pyelonephritis AND GASTROENTERITIS CT findings as above Urine culture positive for Proteus mirabilis Follow up blood cultures patient still febrileTmax 102.7 , WBC trended down from 19 K-- 8 K Still with watery diarrhea C.difff and hepatitis profile negative Continue rocephin IV, pain management, IVF Zofran IV for nausea and vomiting, Tylenol for pain and fevers 2. Nephrolothiasis right obstructive uropathy urology consulted contine IVF, Flomax and pain management Repeat US once diarrhea improves , DIARRHEA RESOLVED Discussed with Dr. Washington, OK to be discharged, will repeat RENAL US AND KUB and then OK to dc 3. Hypertension hold home meds since BP is on the lower side 4. Globular uterus follow up OB US patient will need follow up with her OB 5. Coagulopathy / Elevated LFT-s / elevated bilirubin unclear etiology Ct abdomen showed steatosis Hepatitis panel-- negative f/u Abdominal US continue to monitor 6. Hypokalemia Most likely secondary to GI losses Replaced with KCl runs 7. Diarrhea/ nausea-- suspected viral gastroenteritis continue IVF replace K Stool c.diff - negative follow up stool cultures , ova and parasites DIARRHEA RESOLVED 8. DVT prophylaxis SCDs lovenox Discharge Exam - Head Exam Head Exam: ATRAUMATIC, NORMAL INSPECTION, NORMOCEPHALIC - Eye Exam Eye Exam: EOMI, Normal appearance, PERRL - ENT Exam ENT Exam: Mucous Membranes Moist, Normal Oropharynx - Neck Exam Neck exam: Full Rom, Normal Inspection - Respiratory Exam Respiratory Exam: Clear to PA & Lateral, NORMAL BREATHING PATTERN. absent: Rales, Rhonchi - Cardiovascular Exam Cardiovascular Exam: RRR, +S1, +S2. absent: Gallop, Rubs - GI/Abdominal Exam GI & Abdominal Exam: Normal Bowel Sounds, Soft. absent: Mass, Organomegaly, Tenderness - Extremities Exam Extremities exam: normal capillary refill, pedal pulses present - Back Exam Back exam: absent: CVA tenderness (L), CVA tenderness (R) - Neurological Exam Neurological exam: Alert, Normal Gait, Oriented x3 - Psychiatric Exam Psychiatric exam: Normal Affect, Normal Mood - Skin Skin Exam: Dry, Normal Color, Warm Discharge Plan - Discharge Medications Prescriptions: Tamsulosin [Flomax] 0.4 mg PO DAILY #30 cap - Follow Up Plan Condition: STABLE Disposition: HOME/ ROUTINE Instructions: Pelvic Ultrasound (GEN) Additional Instructions: FOllow up with Dr. Washington as outpatient Follow up with PCP as outpatient if condition worsens, return to ER
--- NOTE | 2017-01-23 13:24 | RAD ---
HISTORY: nephrolithiasis COMPARISON: No prior. FINDINGS: There are no calcifications overlying the renal silhouette BOWEL: Normal. No obstruction. BONES: Normal. OTHER FINDINGS: None. IMPRESSION: No radiographic evidence for nephrolithiasis.
--- NOTE | 2017-01-23 13:38 | US ---
PROCEDURE: Ultrasound of the Kidneys HISTORY: nephrolithiasis COMPARISON: None available. TECHNIQUE: Sonogram of the kidneys. FINDINGS: RIGHT KIDNEY: Measures: 12.3 cm. Normal in size, contour and echogenicity. No stone, solid mass lesion or hydronephrosis visualized. There are multiple simple cysts, the largest in the interpolar region measures 1.5 cm. LEFT KIDNEY: Measures: 11.1 cm. Normal in size, contour and echogenicity. No stone, solid mass lesion or hydronephrosis visualized. There is a 1.1 cm cyst with eccentric calcification in the interpolar region. OTHER FINDINGS: None. IMPRESSION: No nephrolithiasis or hydronephrosis. Simple cysts in both kidneys, the largest in the right interpolar region measures 1.5 cm.
[2017-01-23 16:22] VITALS: BP 104/64; PULSE 77; TEMP 98.9; O2SAT 94
== END 2017-01-23 19:42 | disposition home or self-care (01) | DRG 872 ==
LOC: H.ER 16:40 → H.ERHOLD 21:03 → H.MEDSURG1 23:57
PROVIDERS: ADMIT Internal Medicine; ATTEND Internal Medicine
DX: A41.9 Sepsis, unspecified organism (principal); D68.9 Coagulation defect, unspecified; K76.0 Fatty (change of) liver, not elsewhere classified; N13.6 Pyonephrosis; I10 Essential (primary) hypertension; N13.9 Obstructive and reflux uropathy, unspecified; E87.6 Hypokalemia; E78.5 Hyperlipidemia, unspecified; A08.4 Viral intestinal infection, unspecified; B96.4 Proteus (mirabilis) (morganii) as the cause of diseases classified elsewhere